=== PATIENT | male | born 1950 | race African-American/Black ===

== ENCOUNTER 2021-01-26 11:24 | Outpatient (CLI) | payer MEDICARE, OTHER | END 2021-01-26 11:25 | disposition home or self-care (01) | LOC: BICRAD 11:24 | PROVIDERS: ATTEND Family Medicine | DX: R05 Cough (principal); F17.200 Nicotine dependence, unspecified, uncomplicated; R91.8 Other nonspecific abnormal finding of lung field; J98.4 Other disorders of lung | CPT/HCPCS: 71046 ==